=== PATIENT | male | born 1965 | race Caucasian/White ===

== ENCOUNTER 2019-07-03 00:43 | Emergency (ER) | payer MEDICAID ==
[~2019-07-03] VITALS: Ht 177.8 cm; Wt 70.9 kg
[2019-07-03 00:46] VITALS: BP 105/59
[2019-07-03] MEDS ORDERED: FLUORESCEIN OPHTHALMIC 1 MG STRIP ONE (00:49)
[2019-07-03] MEDS ORDERED: PROPARACAINE OPHTH 0.5%, 15ML ONE (00:49)
[2019-07-03] MEDS ORDERED: ERYTHROMYCIN OPHTH 0.5%, 1GM LEFTEYE ONE (01:30)
== END 2019-07-03 01:12 | disposition home or self-care (01) ==
LOC: ED 01:00
DX: H10.022 Other mucopurulent conjunctivitis, left eye (principal)
CPT/HCPCS: 99282

== ENCOUNTER 2019-09-16 20:10 | Emergency (ER) | payer MEDICAID ==
[~2019-09-16] VITALS: Ht 180.3 cm; Wt 67.9 kg
--- NOTE | 2019-09-16 20:49 | NUR ---
PT HAS CO FOOD STUCK IN HIS THROAT. PT NOT IN DISTERSS. RESPIRATIONS EVEN AND UNLABORED. PT STATES HE WAS CHEWING ON PRIME RIB AND WAS NOT ABLE TO SWALLOW, STATES THAT THIS HAS BEEN HAPPENING RECENTLY , YESTERDAY A BIG PILL GOT STUCK IN HIS THROAT. PA AT BEDSIDE.
--- NOTE | 2019-09-16 20:57 | NUR ---
REPORT TO BONIFACIO
[2019-09-16] MEDS ORDERED: GLUCAGON 1 MG SQ ONE (21:00)
[2019-09-16] MEDS ORDERED: GLUCAGON 1 MG ONE (21:05)
[2019-09-16] MEDS ORDERED: ONDANSETRON ODT 4 MG ONE (21:09)
--- NOTE | 2019-09-16 21:29 | NUR ---
PT PLACED IN GOWN AND ON ALL MONITORS. PT STATES HE IS ABLE TO SWALLOW HIS SALIVA WITHOUT DIFFICULTY. PT MEDICATED PER EMAR. VSS AND WILL CONT TO MONITOR.
[2019-09-16] MEDS ORDERED: OMNIPAQUE 350 MG/ML, 150 ML BOTTLE ONE (21:52)
--- NOTE | 2019-09-16 22:25 | NUR ---
RECEIVED REPORT FROM BONIFACIO COUCH, ASSUMING CARE OF PT. PT AWARE OF ENDO PROCEDURE. CONNECTED TO ALL MONITORING, VSS. IV IN PLACE. ALL SAFETY MEASURES IN PLACE. AWAITING MD AT THIS TIME
[2019-09-16] MEDS ORDERED: PROPOFOL 10 MG/ML, 20ML IVPush ONE (22:30)
[2019-09-16] MEDS ORDERED: PROPOFOL 10 MG/ML, 20ML ONE ×2 (22:37→23:19)
--- NOTE | 2019-09-16 22:58 | NUR ---
DISCUSSION WITH PA ABOUT PT LOW BP AND PENDING USE OF PROPOFOL, ORDERS RECEIVED TO BOLUS 1 LITER AT THIS TIME.
--- NOTE | 2019-09-16 22:58 | NUR ---
DR MCGHEE FROM GI AT BEDSIDE ASSESSING PT AT THIS TIME.
[2019-09-16 22:59] VITALS: BP 109/68
[2019-09-16] MEDS ORDERED: SODIUM CHLORIDE 0.9% 1,000ML IVBOLUS ONE (23:00)
--- NOTE | 2019-09-16 23:07 | NUR ---
REPORT RECEIVED, POC DISCUSSED, GI MD AT BEDSIDE WITH ENDO TEAM. CONSENT FOR PROCEDURE HAS BEEN SIGNED. PT ON MONITOR, O2 AT 2LM NC.
[2019-09-16] MEDS ORDERED: MIDAZOLAM 1 MG/ML, 2ML ONE (23:12)
--- NOTE | 2019-09-16 23:14 | NUR ---
ENDOSCOPY TO REMOVE FB FROM THROAT STARTED. SEE PROCEDURAL SEDATION FLOW SHEET FOR MEDS AND VS.
[2019-09-16] MEDS ORDERED: ONDANSETRON 2MG/ML, 2ML ONE (23:22)
[2019-09-16] MEDS ORDERED: FAMOTIDINE 20 MG/2 ML IVPush ONE (23:30)
[2019-09-16] MEDS ORDERED: ONDANSETRON 2MG/ML, 2ML IVPush ONE (23:30)
[2019-09-16] MEDS ORDERED: FAMOTIDINE 20 MG/2 ML ONE (23:49)
--- NOTE | 2019-09-17 00:30 | NUR ---
PT DC'D HOME WITH RX X 2 AND UNDERSTANDING OF INSTRUCTIONS. CAB VOUCHER SUPPLIED FOR SAFE DC. PT ESCORTED TO DC DESK, PT GAIT STEADY.
== END 2019-09-17 00:40 | disposition home or self-care (01) ==
LOC: ED 23:43
DX: K22.10 Ulcer of esophagus without bleeding (principal); T18.128A Food in esophagus causing other injury, initial encounter; K27.3 Acute peptic ulcer, site unspecified, without hemorrhage or perforation; X58.XXXA Exposure to other specified factors, initial encounter; Y93.89 Activity, other specified; Y92.89 Other specified places as the place of occurrence of the external cause; Y99.8 Other external cause status
CPT/HCPCS: 43247; 74220; 96372; 96374; 96375; 99285; J1610; J2405; J2704; J3490; J7030; Q9967; 99283

== ENCOUNTER 2019-12-26 10:32 | Emergency (ER) | payer MEDICAID ==
--- NOTE | 2019-12-26 10:45 | NUR ---
PT STATED HE NEEDS TO "FIGURE OUT HIS INSURANCE AND SEE IF WELFARE IS STILL ACTIVE" BEFORE HE IS SEEN. PT AMB TO EXIT WITH STEADY GAIT.
== END 2019-12-26 11:56 | disposition left against medical advice (07) ==
LOC: ED 11:50
DX: M54.9 Dorsalgia, unspecified (principal); Z53.21 Procedure and treatment not carried out due to patient leaving prior to being seen by health care provider

== ENCOUNTER 2020-10-19 21:34 | Emergency (ER) | payer MEDICAID ==
[~2020-10-19] VITALS: Ht 177.8 cm; Wt 71.5 kg
--- NOTE | 2020-10-19 21:50 | NUR ---
PT BACK TO ROOM AT THIS TIME. PT RESTING ON ELOISA, STATES "I DONT KNOW IF ITS COVID AGAIN OR SOMETHING BUT THESE LAST FOUR DAYS NICOLE JUST ADDISON STOPPED AND MY BODY JUST SHUT DOWN". PT REPORTS HAVING COVID 2 TIMES PREVIOUS. NOW HAVING FATIGUE, FEVER A FEW DAYS BACK, HERNANDEZ, BODY ACHES, COUGHING. PT PLACED ON SPO2/BP MONITORING. WCTM.
--- NOTE | 2020-10-19 21:57 | NUR ---
MARJORIE VARGAS AT FOR EVAL AND POC. PT SWABBED BY PROVIDER FOR COVID. PT NAD, BED IN LOWEST, CALL LIGHT ON LAP, WCTM
--- NOTE | 2020-10-19 22:15 | NUR ---
Patient given discharge instructions and they have confirmed that they understand the instructions. Patient ambulatory with steady gait. nad, denies additional questions or needs, no personal belongings left in room after dc.
[2020-10-19 22:16] VITALS: BP 118/73
== END 2020-10-19 22:18 | disposition home or self-care (01) ==
LOC: ED 22:00
DX: J06.9 Acute upper respiratory infection, unspecified (principal); Z20.822 Contact with and (suspected) exposure to COVID-19; R94.31 Abnormal electrocardiogram [ECG] [EKG]; Z87.11 Personal history of peptic ulcer disease
CPT/HCPCS: 87635; 93005; 99284

== ENCOUNTER 2020-12-07 02:57 | Emergency (ER) | payer MEDICAID ==
[~2020-12-07] VITALS: Ht 177.8 cm; Wt 68.2 kg
--- NOTE | 2020-12-07 03:17 | NUR ---
Productive cough with green sputum x 5 days. No fever. OCASSIONAL CHILLS. HERNANDEZ WITH PRESSURE.
--- NOTE | 2020-12-07 04:02 | NUR ---
PT STATES "HASN'T BEEN EATING WELL AFTER MOVING INTO A NEW APARTMENT. HAS BEEN THE MOST STRESSFUL TIME IN HIS LIFE, THE LAST 4 MONTHS; TRYING TO FINDA A PLACE TO LIVE GOING FROM [facility] TO [facility]."
--- NOTE | 2020-12-07 04:02 | NUR ---
PT STATES "HAS HAD BEEN BLOWING HIS NOSE CONSTANLY THE LAST COUPLE WEEKS WITH A RUNNY NOSE. THE LAST FIVE DAYS HAS BEEN MORE CONGESTED."
[2020-12-07 04:04] VITALS: BP 117/80
--- NOTE | 2020-12-07 04:05 | NUR ---
PT STATES, "THE LAST 5 DAYS GETTING UP IN THE [place] HAS BEEN VERY DIFFICULT FROM BONES BEING SORE AND WEAKNESS."
== END 2020-12-07 04:59 | disposition home or self-care (01) ==
LOC: ED 03:15
DX: R05 Cough (principal); R06.02 Shortness of breath; R09.81 Nasal congestion
CPT/HCPCS: 71045; 99283

== ENCOUNTER 2021-01-17 15:39 | Emergency (ER) | payer MEDICAID ==
[~2021-01-17] VITALS: Ht 177.8 cm; Wt 64.0 kg
[2021-01-17 16:51] LABS: BASOPHILS % (AUTO) 1 % (0-1); EOSINOPHILS % (AUTO) 2 % (1-7); LYMPHOCYTES % (AUTO) 23 % (22-44); MD NO; MEAN CORPUSCULAR HEMOGLOBIN 30.8 pg (27.5-34.5); MEAN CORPUSCULAR HGB CONC 33.6 g/dL (33.2-36.2); MEAN PLATELET VOLUME 6.8 fL (7.4-10.4); MONOCYTES % (AUTO) 10 % (2-9); NEUTROPHILS % (AUTO) 65 % (42-75); PLATELET COUNT 294 x10^3/uL (130-400); RED BLOOD COUNT 4.49 x10^6/uL (4.38-5.82)
[2021-01-17 17:03] LABS: ALBUMIN 3.6 g/dL (3.4-5.0); ANION GAP 2 mmol/L (5-15); CALCIUM 8.8 mg/dL (8.5-10.1); CHLORIDE 106 mmol/L (98-107)
[2021-01-17 17:07] LABS: ALANINE AMINOTRANSFERASE 32 U/L (12-78); ALKALINE PHOSPHATASE 55 U/L (45-117); BILIRUBIN,TOTAL 0.4 mg/dL (0.2-1.0); CREATININE 1.19 mg/dL (0.7-1.3); TOTAL PROTEIN 6.7 g/dL (6.4-8.2)
--- NOTE | 2021-01-17 18:05 | NUR ---
PT WITH EPIGASTRIC ABD PAIN ONGOING FOR PAST FEW YEARS BUT WORSE FOR PAST 4 DAYS. +N/V AND RPTS BLOOD IN STOOL. ER PROVIDER AT BEDSIDE, PT ASSESSMENT REVIEWED, POC DISCUSSED AND QUESTIONS ANSWERED. VSS, CALL LIGHT W/I REACH.
[2021-01-17] MEDS ORDERED: ONDANSETRON ODT 8 MG PO STA (18:07)
[2021-01-17] MEDS ORDERED: MAALOX/HYOSCYAMINE/LIDOCAINE 45 ML BTL ONE (18:15)
[2021-01-17] MEDS ORDERED: ONDANSETRON ODT 8 MG ONE (18:15)
--- NOTE | 2021-01-17 18:25 | NUR ---
PT MED NOTED. US TECH AT BEDSIDE FOR US STUDY.
[2021-01-17] MEDS ORDERED: MAALOX/HYOSCYAMINE/LIDOCAINE 45 ML BTL PO ONE (18:30)
--- NOTE | 2021-01-17 19:03 | NUR ---
US COMPLETED. PT RPTS STOMACH PAIN AND NAUSEA IMPROVED AFTER MEDICATIONS. VSS, SBAR RPT TO IZA DENG.
[2021-01-17 19:17] VITALS: BP 108/73
== END 2021-01-17 19:21 | disposition home or self-care (01) ==
LOC: ED 19:05
DX: K29.00 Acute gastritis without bleeding (principal); R10.13 Epigastric pain; R11.2 Nausea with vomiting, unspecified; K21.9 Gastro-esophageal reflux disease without esophagitis; F17.210 Nicotine dependence, cigarettes, uncomplicated
CPT/HCPCS: 36415; 76700; 80053; 85025; 85730; 86850; 86900; 99284; Q0162

== ENCOUNTER 2021-05-04 08:08 | Emergency (ER) | payer MEDICAID ==
[~2021-05-04] VITALS: Ht 182.9 cm; Wt 59.1 kg
--- NOTE | 2021-05-04 08:28 | NUR ---
CUSTOMER SERVICE LEADER: PT TO ROOM VIA W/C
--- NOTE | 2021-05-04 08:50 | NUR ---
PT BIB EMS FOR PSYCHOSIS. PT PRESENTED HIMSELF TO PD AND STATED THAT PEOPLE WERE AFTER HIM. PT GIVEN 5 MG HALDOL BY EMS ELECT[employer]ICAL CONTACTS ADJUSTER AND PT CALM. PT NOT ANSWERING QUESTIONS, BUT FOLLOWING COMMANDS. UNK SI/HI. VSS. PT PLACED IN SECURE ROOM. SITTER OUTSIDE IN LINE OF SIGHT.
--- NOTE | 2021-05-04 10:24 | NUR ---
PT ASLEEP IN [facility] AT THIS TIME.
[2021-05-04 12:37] VITALS: BP 153/87
--- NOTE | 2021-05-04 12:41 | NUR ---
PT VS UPDATED IN EMR. SITTER OUTSIDE OF PT ROOM FOR DIRECT OBSERVATION OF PT.
== END 2021-05-04 13:20 | disposition home or self-care (01) ==
LOC: ED 13:14
DX: F15.122 Other stimulant abuse with intoxication with perceptual disturbance (principal); F41.9 Anxiety disorder, unspecified; Z87.11 Personal history of peptic ulcer disease
CPT/HCPCS: 99283

== ENCOUNTER 2021-05-10 15:33 | Emergency (ER) | payer MEDICAID ==
[~2021-05-10] VITALS: Ht 177.8 cm; Wt 63.0 kg
[2021-05-10 15:37] VITALS: BP 99/68
[2021-05-10 16:22] LABS: MICROSCOPIC INDICATED
[2021-05-10 16:31] LABS: BASOPHILS % (AUTO) 0 % (0-1); EOSINOPHILS % (AUTO) 2 % (1-7); LYMPHOCYTES % (AUTO) 12 % (22-44); MEAN CORPUSCULAR HEMOGLOBIN 31.1 pg (27.5-34.5); MEAN PLATELET VOLUME 6.7 fL (7.4-10.4); MONOCYTES % (AUTO) 6 % (2-9); NEUTROPHILS % (AUTO) 80 % (42-75); PLATELET COUNT 225 x10^3/uL (130-400); RED BLOOD COUNT 4.06 x10^6/uL (4.38-5.82); RED CELL DISTRIBUTION WIDTH 14.3 % (9.4-14.8)
[2021-05-10 16:43] LABS: ALBUMIN 2.7 g/dL (3.4-5.0); ANION GAP 1 mmol/L (5-15); CALCIUM 8.2 mg/dL (8.5-10.1); CHLORIDE 104 mmol/L (98-107)
[2021-05-10 16:47] LABS: ALANINE AMINOTRANSFERASE 26 U/L (12-78); ALKALINE PHOSPHATASE 49 U/L (45-117); BILIRUBIN,TOTAL 0.3 mg/dL (0.2-1.0); CREATININE 1.05 mg/dL (0.7-1.3); TOTAL PROTEIN 5.9 g/dL (6.4-8.2)
--- NOTE | 2021-05-10 17:24 | NUR ---
FIRST CONTACT: "I HAVE HAD AN ULCER PROBLEM. STOMACH STARTING TO HURT BECAUSE OF ALL THE VOMITING I HAVE BEEN DOING. I HAVE BEEN VOMITING EVERY DAY. DID NOT F/U WITH GI. NOT TAKING ANY MEDS." PT TO ROOM WITH STEADY GAIT. ATTACHED TO MONITORS. VSS. OBRIEN.
--- NOTE | 2021-05-10 17:53 | NUR ---
Patient given discharge instructions and they have confirmed that they understand the instructions. Patient ambulatory with steady gait. NAD, all questions answered appropriately, denies additional needs at this time. No personal belongings left in room after discharge.
== END 2021-05-10 17:59 | disposition home or self-care (01) ==
LOC: ED 15:43
DX: K29.00 Acute gastritis without bleeding (principal); K21.00 Gastro-esophageal reflux disease with esophagitis, without bleeding; F17.210 Nicotine dependence, cigarettes, uncomplicated
CPT/HCPCS: 36415; 80053; 81001; 83690; 85025; 99283; 99406

== ENCOUNTER 2021-05-12 16:47 | Emergency (ER) | payer MEDICAID ==
--- NOTE | 2021-05-12 17:17 | NUR ---
NIL X 1
--- NOTE | 2021-05-12 18:00 | NUR ---
NIL X 2
--- NOTE | 2021-05-12 18:44 | NUR ---
NIL X 3
== END 2021-05-12 18:45 | disposition left against medical advice (07) ==
LOC: ED 16:47
DX: R11.10 Vomiting, unspecified (principal); Z53.21 Procedure and treatment not carried out due to patient leaving prior to being seen by health care provider